=== PATIENT | male | born 1965 | race American Indian/Alaskan Native ===

== ENCOUNTER 2017-03-19 10:16 | Emergency (ER) | payer MEDICARE ==
[2017-03-19 10:16] VITALS: BMI 28.3
[2017-03-19 10:45] VITALS: RESP 18; TEMP 98.7
--- NOTE | 2017-03-19 13:10 | ED PDOC ---
HPI: Psych/Substance Abuse Time Seen by Provider: 03/19/17 11:31 Chief Complaint (Nursing): Anxiety Chief Complaint (Provider): Anxiety, depression History Per: Patient History/Exam Limitations: no limitations Onset/Duration Of Symptoms: Days Current Symptoms Are (Timing): Gone Now Suicide/Self Injury Attempted (Context): None Involuntary Hold By: None Additional Complaint(s): PT states that he was watching a show and it made him upset and cry uncontrollably. Pt states it happened again later in the day. Pt denies depression, SI. Past Medical History Reviewed: Historical Data, Nursing Documentation, Vital Signs Vital Signs: Last Vital Signs Temp 98.7 F 03/19/17 10:42 Pulse 103 H 03/19/17 10:42 Resp 18 03/19/17 10:42 BP 156/103 H 03/19/17 10:42 Pulse Ox 100 03/19/17 10:42 - Medical History PMH: HTN, Seizures Denies: Depression - Surgical History Surgical History: No Surg Hx - Family History Family History: States: No Known Family Hx - Living Arrangements Living Arrangements: With Family - Immunization History Hx Tetanus Toxoid Vaccination: No - Home Medications Home Medications: Ambulatory Orders Medication Instructions Recorded Atorvastatin [Lipitor] 40 mg PO DAILY 08/20/11 Lamotrigine [Lamictal] 200 mg PO Q12 #60 tab 11/01/11 Lamotrigine [Lamictal] 200 mg PO BID #30 tab 12/13/11 Ondansetron [Zofran Odt] 4 mg PO Q6 #30 odt 08/21/12 - Allergies Allergies/Adverse Reactions: Allergies Allergy/AdvReac Type Severity Reaction Status Date / Time Sulfa (Sulfonamide Allergy PAIN Verified 03/19/17 10:42 Antibiotics) Review of Systems ROS Statement: Except As Marked, All Systems Reviewed And Found Negative Constitutional: Negative for: Fever, Chills Psych: Positive for: Anxiety. Negative for: Depression, Suicidal ideation Physical Exam - Reviewed Nursing Documentation Reviewed: Yes Vital Signs Reviewed: Yes - Physical Exam Appears: Positive for: Well, Non-toxic, No Acute Distress Head Exam: Positive for: ATRAUMATIC, NORMAL INSPECTION, NORMOCEPHALIC Skin: Positive for: Normal Color, Warm, DRY Eye Exam: Positive for: Normal appearance ENT: Positive for: Normal ENT Inspection Neck: Positive for: Normal, Painless ROM Cardiovascular/Chest: Positive for: Regular Rate, Rhythm Respiratory: Positive for: CNT, Normal Breath Sounds Back: Positive for: Normal Inspection Extremity: Positive for: Normal ROM Neurologic/Psych: Positive for: Alert, Oriented - ECG O2 Sat by Pulse Oximetry: 100 Medical Decision Making Medical Decision Making: crisis evaluation completed. Disposition - Clinical Impression Clinical Impression: Anxiety - Patient ED Disposition Is Patient to be Admitted: No Counseled Patient/Family Regarding: Diagnosis, Need For Followup - Disposition Referrals: [facility] [Outside] [facility] [Outside] Disposition: Routine/Home Disposition Time: 13:11 Condition: GOOD Instructions: Anxiety (ED)
[2017-03-19 13:16] VITALS: BP 128/76; PULSE 89; O2SAT 99
== END 2017-03-19 13:27 | disposition home or self-care (01) ==
LOC: H.ER 10:16
DX: F41.9 Anxiety disorder, unspecified (principal); F32.9 Major depressive disorder, single episode, unspecified; I10 Essential (primary) hypertension

== ENCOUNTER 2017-10-27 08:38 | Day surgery (SDC) | payer MEDICARE ==
[2017-10-27 10:14] VITALS: BMI 28.0
[2017-10-27] MEDS ORDERED: Lactated Ringer's 500 ML IV ONE (10:23)
[2017-10-27 10:30] VITALS: O2SAT 100
[2017-10-27] MEDS ORDERED: Propofol 10 mg/ml Inj (20 ML) ONE (12:25)
[2017-10-27 13:18] VITALS: RESP 20
[2017-10-27 13:26] VITALS: BP 111/74; PULSE 66; TEMP 97.2
== END 2017-10-27 13:35 | disposition home or self-care (01) ==
LOC: H.ENDO 08:38
PROVIDERS: ATTEND Internal Medicine Gastroenterology
DX: Z12.11 Encounter for screening for malignant neoplasm of colon (principal); E78.5 Hyperlipidemia, unspecified; I10 Essential (primary) hypertension; Z21 Asymptomatic human immunodeficiency virus [HIV] infection status; G40.909 Epilepsy, unspecified, not intractable, without status epilepticus; K64.0 First degree hemorrhoids
CPT/HCPCS: 45378; J2001; J2704; J7120